=== PATIENT | male | born 1960 | race Caucasian/White ===

== ENCOUNTER 2022-09-18 06:15 | Inpatient (IN) ==
--- NOTE | 2022-09-03 09:22 | PAT Medication Instructions ---
Medication Instructions Date of Service September 03, 2022 Home Medications buspirone 10 mg tablet 10 mg PO BID celecoxib 200 mg capsule 200 mg PO QAM cyclobenzaprine 5 mg tablet 5 mg PO TID ezetimibe 10 mg tablet 10 mg PO QAM gabapentin 100 mg tablet 300 mg PO HS naproxen 500 mg tablet 500 mg PO QPM pravastatin 40 mg tablet 40 mg PO HS ASK your surgeon for instructions celecoxib 200 mg capsule 200 mg PO QAM naproxen 500 mg tablet 500 mg PO QPM DO NOT take the morning of surgery cyclobenzaprine 5 mg tablet 5 mg PO TID Take morning of surgery With a small sip of water, OTHERWISE NOTHING TO EAT OR DRINK AFTER MIDNIGHT: buspirone 10 mg tablet 10 mg PO BID ezetimibe 10 mg tablet 10 mg PO QAM Take evening before surgery buspirone 10 mg tablet 10 mg PO BID cyclobenzaprine 5 mg tablet 5 mg PO TID gabapentin 100 mg tablet 300 mg PO HS pravastatin 40 mg tablet 40 mg PO HS Other Notes If you have any questions please call us at [phone] or [phone] or [phone] or [phone]
--- NOTE | 2022-09-09 10:59 | Anesthesiology Consultation ---
Date of Service September 09, 2022 Assessment & Plan (1) Encounter for pre-operative examination: Chart Review Chart Review: Acceptable Risk for Surgery and Patient seen in Pre Admission Testing addendum TO 09/11/22, medical clearance 09/10/22: "...preop for back surgery...pre- op testing done at [facility]...low to moderate risk for his surgery..." Per PAT appt on 09/09/22, patient denies any recent travel. No recent Covid exposures, Covid related symptoms, or recent Covid positive tests. Will leave to surgeon's discretion if preop Covid testing needed. Educated on importance of using Covid precautions one week prior to surgery Teaching & Discussion Pre-Anesthesia Teaching/Discussion Notes: Instructed NPO after midnight before surgery,except medications with 15 cc of water. Medication instructions provided according to the [facility] guidelines. History Surgery Operation Date: 09/18/22 07:45 Proposed Procedures p L4-L5 Decompression and Fusion, Spinal Cord Monitoring - Yonny Montiel, Height/Weight Height: 5 ft 10 in Weight: 88.4 kg Allergies Allergy/AdvReac Type Severity Reaction Status Date / Time No Known Allergies Allergy Verified 08/29/22 09:45 Medications Home Medications Medication Instructions Recorded Confirmed Last Taken buspirone 10 mg tablet 10 mg PO BID 08/29/22 08/29/22 Unknown celecoxib 200 mg capsule 200 mg PO QAM 08/29/22 08/29/22 Unknown cyclobenzaprine 5 mg tablet 5 mg PO TID 08/29/22 08/29/22 Unknown ezetimibe 10 mg tablet 10 mg PO QAM 08/29/22 08/29/22 Unknown gabapentin 100 mg tablet 300 mg PO HS 08/29/22 08/29/22 Unknown pravastatin 40 mg tablet 40 mg PO HS 08/29/22 08/29/22 Unknown Past Medical History Medical History Chronic back pain Degenerative disc disease Hyperlipidemia Osteoarthritis Peripheral neuropathy bilateral legs (left>right) Spinal stenosis Exercise / Class Metabolic Activity II 4-5 Yardwork/Stairs/Walk up hill (one flight of stairs- no chest pain or SOB ) Past Family History Family History Father FHx: prostate cancer, Onset Age: 65 Other No family history of adverse response to anesthesia Past Surgical History Surgical History S/P arthroscopy of left shoulder with RCR Past Anesthesia History No Hx of Anesthesia Complications and No Family Hx of Anesthesia Complications History of PONV No Hx of PONV and No Hx of Motion Sickness Social History Smoking Status: Never smoker Do You Dip or Chew Tobacco: No Hx Alcohol Use: No Hx Substance Use: No Review of Systems Hx of snoring - no witnessed apnea- no hx of sleep study Patient denies chest pain, shortness of breath, dyspnea on exertion, reflux, cough, wheezing, palpitations. No hx of seizures, stroke, CA. No hx of blood clots or blood transfusions Physical Exam Vital Signs VITALS BP 136/83 P 64 TEMP 97.6 SP02 97% RESP 16 Constitutional no acute distress ENMT Mouth: no TMJ clicking Thyromental Distance: > or= 3.5 Finger Breadths (4.0) Mallampati Class: I Neck + limited neck extension (minimal) Respiratory normal respiratory effort; no respiratory distress Auscultation: lungs clear to auscultation bilaterally; no wheezes Cardiovascular Rate/Rhythm: regular rate and regular rhythm Heart Sounds: no murmur Vessels: no carotid bruit Musculoskeletal Spine: no pain with cervical ROM Extremities: extremities normal to inspection Psychiatric Orientation: alert Lab Results Anesthesia Preop Results Results Anesthesia Widget: WBC 6.44 K/ul (4.8-10.8) 09/09/22 Hgb 15.8 g/dl (14.0-18.0) 09/09/22 Hct 47.4 % (42.0-52.0) 09/09/22 Plt 239 K/uL (130-400) 09/09/22 Na 141 mmol/L (136-145) 09/09/22 K 4.4 mmol/L (3.5-5.1) 09/09/22 Cl 106 mmol/L (98-107) 09/09/22 CO2 30 mmol/L (21-32) 09/09/22 BUN 21 mg/dl (6-23) 09/09/22 Creat 0.88 mg/dl (0.6-1.4) 09/09/22 Glucose Level 86 mg/dl (70-99(Fasting)) 09/09/22 PT 11.2 Seconds (9.0-12.0) 09/09/22 PTT 26.9 Seconds (21.0-31.0) 09/09/22 INR 1.0 (0.9-1.1) 09/09/22 Urine Color Dark Yellow 09/09/22 Urine Appearance Clear (Clear) 09/09/22 Urine pH 5.0 (4.5-7.5) 09/09/22 Urine Specific Continental 1.039 (1.000-1.030) H 09/09/22 Urine Protein Negative (Negative) 09/09/22 Urine Glucose (UA) Negative (Negative) 09/09/22 Urine Ketones Trace (Negative) H 09/09/22 Urine Blood Negative (Negative) 09/09/22 Urine Nitrite Negative (Negative) 09/09/22 Urine Bilirubin Negative (Negative) 09/09/22 Urine Urobilinogen Negative (Negative) 09/09/22 Urine Leukocyte Esterase Negative (Negative) 09/09/22 Blood Type B Negative 09/09/22 Antibody Screen NEGATIVE 09/09/22 Testing Electrocardiogram Date: 09/09/22 Findings: + NSR @ (62bpm ) Normal EKG per cardio Chest X-Ray Date: 09/09/22 Findings: + NAD FINDINGS: PA and lateral chest radiographs are obtained. No prior studies are available for comparison at the time of dictation. The cardiomediastinal silhouette is unremarkable. The lungs and pleural spaces are clear. There is no pneumothorax. The bony thorax appears intact. Mild degenerative change is noted in the spine.
[~2022-09-18 06:15] MED LIST: ACETAMINOPHEN 500 MG TAB PO SCH; CeleBREX 200 MG CAP PO SCH; GABAPENTIN 600 MG DOSE PO SCH; LR 500ML BOLUS IV SCH; LR 60ML/HR IV SCH; ceFAZolin 2000MG 2,000 MG/15 ML SYR IV SCH
[2022-09-18] MEDS ORDERED: ePHEDrine sulfate 50 MG/ML AMP IV PRN (07:07)
[2022-09-18] MEDS ORDERED: ONDANSETRON INJ 2 MG/ML 2 ML VIAL IV PRN ×2 (07:07→11:33)
[2022-09-18] MEDS ORDERED: ATROPINE SULFATE 0.1 MG/ML 10ML SYR IV PRN (07:07)
[2022-09-18] MEDS ORDERED: HYDROmorphone INJ 2 MG/ML SYR/VIAL IV PRN (07:07)
[2022-09-18] MEDS ORDERED: PROMETHAZINE HCL 6.25 MG in SODIUM CHLORIDE 0.9% 50 ML IV PRN (07:07)
[2022-09-18] MEDS ORDERED: ROCURONIUM BROMIDE 10 MG/ML 5 ML VIAL IV ONE ×2 (07:15→08:26)
[2022-09-18] MEDS ORDERED: KETAMINE 50 MG/5 ML SYRINGE ONE (07:15)
[2022-09-18] MEDS ORDERED: fentaNYL citrate PF 100 MCG/2 ML VIAL ONE (07:15)
[2022-09-18] MEDS ORDERED: MIDAZOLAM HCL 1 MG/ML 2ML VIAL ONE (07:15)
[2022-09-18] MEDS ORDERED: PROPOFOL IV EMULSION 10 MG/ML 20 ML VIAL IV ONE (07:15)
[2022-09-18] MEDS ORDERED: DEXAMETHASONE SOD INJ 4 MG/ML VIAL ONE (07:15)
[2022-09-18] MEDS ORDERED: ONDANSETRON INJ 2 MG/ML 2 ML VIAL ONE (07:15)
[2022-09-18] MEDS ORDERED: LIDOCAINE 2% 2 ML VIAL/AMP(20MG/ML) INFIL ONE (07:15)
[2022-09-18] MEDS ORDERED: ceFAZolin 330 MG/ML 1 GM VIAL ONE (07:41)
[2022-09-18] MEDS ORDERED: BUPIVACAINE/EPINEPHRINE 0.25% 1:200,000 30 ML VIAL ONE (07:41)
--- NOTE | 2022-09-18 07:42 | History & Physical Bridge Note ---
Date of Service September 18, 2022 History & Physical Bridge Note I have examined the patient, reviewed the History & Physical and in the interval since the performance of the History & Physical I have noted the following changes of clinical significance: no changes noted
--- NOTE | 2022-09-18 07:43 | History & Physical Report ---
Date of Service September 18, 2022 Assessment & Plan (1) Neurogenic claudication due to lumbar spinal stenosis: Plan: L4-5 decompression and fusion History of Present Illness Chief Complaint: Back and leg pain Primary Care Provider: MARC Carrizales This is a 62-year-old male who presents with chronic persistent back and leg pain and failing since course of nonoperative care is here for surgical invention. Allergies Allergy/AdvReac Type Severity Reaction Status Date / Time No Known Allergies Allergy Verified 09/18/22 06:41 Home Medications Medication Instructions Recorded Confirmed Type buspirone 10 mg tablet 10 mg PO BID 08/29/22 09/18/22 History celecoxib 200 mg capsule 200 mg PO QAM 08/29/22 09/18/22 History cyclobenzaprine 5 mg tablet 5 mg PO TID 08/29/22 09/18/22 History ezetimibe 10 mg tablet (Zetia) 10 mg PO QAM 08/29/22 09/18/22 History gabapentin 100 mg tablet 300 mg PO HS 08/29/22 09/18/22 History pravastatin 40 mg tablet 40 mg PO HS 08/29/22 09/18/22 History Past Med/Surg History Medical History Chronic back pain Degenerative disc disease Hyperlipidemia Osteoarthritis Peripheral neuropathy bilateral legs (left>right) Spinal stenosis Surgical History S/P arthroscopy of left shoulder with RCR Family History Father FHx: prostate cancer, Onset Age: 65 Other No family history of adverse response to anesthesia Social History Smoking Status: Never smoker Second Hand Exposure: No; Do You Dip or Chew Tobacco: No; Tobacco Cessation Education Requested by Patient: No Hx Alcohol Use: No Hx Substance Use: No Preferred Language: Divehi Communication Ability: Effective Machine Welt Butter Required: No Beliefs That Will Affect Care: None Current Living Situation: Spouse Other Information That Helps Us Care for You: No Feels Safe at Home: Yes Safety Concerns: Feels Safe At This Time Assistive Devices: None Physical Exam Physical Exam: Patient is alert and oriented Heart regular rhythm Lungs clear Results & Data Results & Data Vital Signs (Past 12 Hours) Vital Signs Temp Pulse Resp BP Pulse Ox O2 Del Method 09/18/22 06:44 37.0 C 72 18 162/91 H 97 Room Air
[2022-09-18] MEDS ORDERED: SUGAMMADEX SODIUM 200 MG/2 ML VIAL IV ONE (08:26)
[2022-09-18] MEDS ORDERED: ePHEDrine sulfate 50 MG/ML AMP ONE (08:46)
[2022-09-18] MEDS ORDERED: FLOSEAL HEMOSTATIC MATRIX 10ML TOP ONE (08:52)
--- NOTE | 2022-09-18 09:33 | Operative Report ---
Post Operative Report Pre & Post Diagnosis Operation Date: 09/18/22 07:45 Pre-Op Diagnosis: Neurogenic claudication due to lumbar spinal stenosis Post-Op Diagnosis: Neurogenic claudication due to lumbar spinal stenosis I identified the patient and participated in the time-out.: Yes Procedure Operation Date: 09/18/22 07:45 Actual Procedures 1. Lumbar decompression bilaterally facetectomies and foraminotomies L3-L4 and L4-5. #2 posterior spinal fusion L4-L5 #3 placed posterior instrumentation L4-5 per #4 interbody fusion L4-5 and L5 placement Spira 15 x 26 mm x 2 at L4-5. #6 placement locally harvested morselized autograft in the posterior gutters. #7 placement of I factor amount of the test interbody space and posterior gutters. Surgeon Yonny Montiel, Mold Laminator Mariel Robles Estimated Blood Loss 50 Findings Consistent with Post-Op Diagnosis Specimens none Indications This is a 62-year-old male who presents above-mentioned diagnosis after failing course of nonoperative care is here for surgical invention. Description of Procedure Patient was met with identified informed consent obtained. Patient was then taken to the operative suite underwent a patient placed in a prone position on the David table atop the Terry frame. All bony prominences well-padded eyes inspected to ensure no external pressure placed upon the. This point lumbar spine was prepped and draped in a sterile fashion. Sharp dissection with the assistance of Bovie cautery performed down to and exposing the lamina transverse processes of L4-L5. From caudal cephalad fashion complete laminectomy of L4 partial laminectomy L3 was performed including bilaterally facetectomies and foraminotomies addressing severe spinal stenosis as well as a massive facet cyst at L4-5 on the left that was directly adhered to the dura. After complete decompression pedicle screws were placed at L4-5 bilaterally with assistance of fluoroscopy and appropriate sized jayy placed. By way of transforaminal approach on the left discectomy was performed endplates guided to subcortically bone and a 15 x 26 mm Spira cage with I factor tapped in position. Then proceeded to the right transforaminal region got again discectomy performed endplates curetted to subcortically bone and a second 15 x 26 mm Spira cage tapped into position. The rods were then compressed locked in final position bilaterally but the transverse processes of L4-5 burred to subcortically bone. I factor bone of the test and locally harvested morselized allograft was placed in the posterior gutters. 15 round NAKUL drain inserted. The incision was then closed with 1 Vicryl the fascia 2-0 Vicryl subcutaneously and 4 Monocryl for final skin closure. Steri-Strips sterile dressing placed. Patient waken taken to PACU stable condition. Please note spinal cord monitoring was utilized at the procedure no changes noted. Lastly Mariel Robles was present at the entire surgery and while the patient positioning complex portions of the surgery and final skin closure. I attest to the content of the Intraoperative Record and any orders documented therein. Any exceptions are noted below.
--- NOTE | 2022-09-18 09:50 | Fluoroscopy Report ---
FL lumbar spine 2-3V CLINICAL HISTORY: L4-5 DFI TECHNIQUE: 2 views were obtained with the C-arm in the OR with the above procedure. Total fluoroscopy time was 12.8 seconds. Radiation dose was 10.3 mGy. Comparison: None available at the time of this dictation. FINDINGS/IMPRESSION: Intraoperative images were obtained of L4-L5 decompression and fusion. Please correlate with intraoperative fluoroscopy and operative report. ACT 112: Negative or not required by law. Electronically signed by: Harjeet Girard M.D. 09/18/2022 9:49 AM
[2022-09-18] MEDS: fentaNYL citrate PF 100 MCG/2 ML VIAL IV PRN ×4 (10:29→10:44)
--- NOTE | 2022-09-18 11:08 | Anesthesiology Progress Note ---
Date of Service September 18, 2022 Anesthesia Post Procedure Vital Signs Vital Signs: Temp Pulse Resp BP Pulse Ox O2 Del Method O2 Flow Rate 09/18/22 11:05 87 12 142/87 H 95 Nasal Cannula 2 09/18/22 10:55 36.7 C 82 14 138/83 97 Nasal Cannula 4 09/18/22 10:45 83 14 143/87 H 97 Nasal Cannula 4 09/18/22 10:35 81 14 142/89 H 97 Nasal Cannula 4 09/18/22 10:25 84 14 143/91 H 98 Oxymask 5 09/18/22 10:15 83 12 139/88 98 Oxymask 5 09/18/22 10:05 79 14 148/86 H 97 Oxymask 5 09/18/22 09:56 36.2 C L 78 12 135/80 98 Oxymask 5 09/18/22 06:44 37.0 C 72 18 162/91 H 97 Room Air Pain Intensity Back: Pain Intensity: 2 Transfer of Care Handoff Completed per policy Notes Mental Status: alert / awake / arousable and participated in evaluation Patient Amnestic to Procedure: Yes Nausea / Vomiting: adequately controlled Pain: adequately controlled Airway Patency, RR, SpO2: stable & adequate BP & HR: stable & adequate Hydration State: stable & adequate Anesthetic Complications: no major complications apparent and Pt Satisfied with anesthetic care
[2022-09-18] MEDS ORDERED: METOCLOPRAMIDE HCL INJ 5 MG/ML 2 ML VIAL IV PRN (11:33)
[2022-09-18] MEDS ORDERED: HYDROmorphone INJ 1 MG/ML SYRINGE IV PRN (11:33)
[2022-09-18] MEDS ORDERED: PROMETHAZINE HCL 12.5 MG in SODIUM CHLORIDE 0.9% 50 ML IV PRN (11:33)
[2022-09-18] MEDS ORDERED: ALUMINUM/MAGNESIUM SUSP 30 ML UDC PO PRN (11:33)
[2022-09-18] MEDS ORDERED: DO NOT ADMINISTER PNEUMOCOCCAL VACCINE PRN (11:33)
[2022-09-18] MEDS ORDERED: HYDROmorphone INJ 0.5 MG/0.5 ML SYR IV PRN (11:33)
[2022-09-18] MEDS ORDERED: hydrOXYzine HCl 25 MG TAB PO PRN (11:33)
[2022-09-18] MEDS ORDERED: MAGNESIUM HYDROXIDE SUSP 30 ML UDC PO PRN (11:33)
[2022-09-18] MEDS ORDERED: LACTATED RINGER'S 1,000 ML IV SCH (11:33)
[2022-09-18] MEDS ORDERED: oxyCODONE HCL IR 5 MG TAB (IMMEDIATE RELEASE) PO PRN (11:33)
[2022-09-18] MEDS ORDERED: ACETAMINOPHEN 500 MG TAB PO PRN (11:33)
[2022-09-18] MEDS ORDERED: NALOXONE HCL 0.4 MG/1 ML VIAL/CARP IV PRN (11:33)
[2022-09-18] MEDS ORDERED: LORazepam 0.5 MG TAB PO PRN (11:33)
[2022-09-18] MEDS ORDERED: SOD PHOSPHATE/SOD BIPHOSPHATE ENEMA 132 ML BTL PR PRN (11:33)
[2022-09-18] MEDS ORDERED: FAMOTIDINE 20 MG TAB PO PRN (11:33)
[2022-09-18] MEDS ORDERED: ACETAMINOPHEN 1,000 MG/100 ML VIAL IV PRN (11:33)
[2022-09-18] MEDS ORDERED: diphenhydrAMINE Capsule 25 MG CAP PO PRN (11:33)
[2022-09-18] MEDS ORDERED: LORazepam 2 MG/1 ML VIAL IV PRN (11:33)
[2022-09-18] MEDS ORDERED: ONDANSETRON 4 MG OD TAB PO PRN (11:33)
[2022-09-18] MEDS ORDERED: DO NOT ADMINISTER FLU VACCINE PRN (11:33)
[2022-09-18] MEDS ORDERED: bisacodyL 10 MG SUPP PR PRN (11:33)
--- NOTE | 2022-09-18 11:58 | Consultation ---
Date of Consultation September 18, 2022 Assessment & Plan (1) Neurogenic claudication due to lumbar spinal stenosis: s/p 1. Lumbar decompression bilaterally facetectomies and foraminotomies L3-L4 and L4-5. #2 posterior spinal fusion L4-L5 #3 placed posterior instrumentation L4-5 per #4 interbody fusion L4-5 and L5 placement Spira 15 x 26 mm x 2 at L4- 5. #6 placement locally harvested morselized autograft in the posterior gutters. #7 placement of I factor amount of the test interbody space and posterior gutters by EBL 50cc POD #0 -pain/wound management per Ortho -VTE prophylaxis per Ortho, encourage early ambulation -incentive spirometry encouraged -CBC, BMP in am -PT/OT and activity restrictions per Ortho (2) Hyperlipidemia: chronic, stable. cont Pravastatin and ezetimibe per home regimen. (3) Osteoarthritis: chronic, stable. No active pain at this time. Celebrex has been held for the past week. Defer to ortho spine to restart once bleeding risk is minimal. (4) Depression: chronic, stable. Cont Buspar per home regimen. DVT prophylaxis-SCDs Full COde Dispo-med/surg I spent a total [id number] coordinating, documenting, and providing care for this patient excluding time spent in the performance of separately billed services. Thank you for this consultation. We will continue to follow this patient during their hospital stay. Calista Wheeler DO [facility] Hospitalist History of Present Illness Requesting Physician: Brendon Montiel DO Reason for Consultation: medical management Attending Physician: Yonny Montiel DO History of Present Illness 62 yo M with hyperlipidemia, depression and neck pain presented today for elective lumbar decompression surgery to treat ongoing neurogenic claudication due to lumbar spinal stenosis. No pain post operative. No nausea. No SOB or chest pain. No tingling in his feet. H&P performed and medications were reconciled. was at bedside and contributed to history. Allergies Allergy/AdvReac Type Severity Reaction Status Date / Time atorvastatin AdvReac Unknown joint pains Uncoded 09/18/22 12:02 prednisone AdvReac Unknown Uncoded 09/18/22 12:02 Home Medications Medication Instructions Recorded Confirmed Type buspirone 10 mg tablet 10 mg PO BID 08/29/22 09/18/22 History celecoxib 200 mg capsule 200 mg PO QAM 08/29/22 09/18/22 History cyclobenzaprine 5 mg tablet 5 mg PO TID 08/29/22 09/18/22 History ezetimibe 10 mg tablet (Zetia) 10 mg PO QAM 08/29/22 09/18/22 History pravastatin 40 mg tablet 40 mg PO HS 08/29/22 09/18/22 History gabapentin 100 mg capsule 100 mg PO BID@1300 09/18/22 09/18/22 History gabapentin 300 mg capsule 300 mg PO HS 09/18/22 09/18/22 History Patient History Medical History (Updated 09/18/22 @ 11:58 by Calista Wheeler DO) Chronic back pain Degenerative disc disease Depression Hyperlipidemia Osteoarthritis Peripheral neuropathy bilateral legs (left>right) Spinal stenosis Surgical History (Updated 09/18/22 @ 12:13 by Calista Wheeler DO) Hx of decompressive lumbar laminectomy 09/18/22 S/P arthroscopy of left shoulder with RCR Family History Father FHx: prostate cancer, Onset Age: 65 Other No family history of adverse response to anesthesia Social History (Updated 09/18/22 @ 11:56 by Calista Wheeler DO) Smoking Status: Never smoker Second Hand Exposure: No; Do You Dip or Chew Tobacco: No; Hx Alcohol Use: No Hx Substance Use: No Preferred Language: Lithuanian Communication Ability: Effective Assistant Signal Maintainer Required: No Beliefs That Will Affect Care: None marital status: Current Living Situation: Spouse Feels Safe at Home: Yes Assistive Devices: None Review of Systems Review of Systems: All systems were reviewed and negative except as indicated on HPI above. Physical Exam Physical Exam: CONSTITUTIONAL: WNWD, vitals as above, generally well-appearing, NAD EYES: pupils are round and equal bilaterally, normal conjunctivae, no scleral icterus ENT: external ear and nose normal, oropharynx clear NECK: trachea midline RESPIRATORY: clear to auscultation bilaterally, no crackles, rales or wheezes, normal respiratory effort CARDIOVASCULAR: regular rate and rhythm, S1 and 2 heard without murmurs, gallops or rubs, no JVD, no peripheral edema CHEST: inspection of chest was normal GASTROINTESTINAL: soft, nontender, ND, no guarding MUSCULOSKELETAL: strength 5/5 throughout, head is normocephalic and atraumatic, neck supple, normal palpation of chest wall without tenderness SKIN: warm and dry, no rashes NEUROLOGIC: CN 2-12 grossly intact, no sensory deficit, normal cognition, normal speech, no tremor PSYCHIATRIC: alert cooperative and oriented to person, place and time. Euthymic mood, makes good eye contact, language grossly intact, recent and remote memory grossly intact. Results & Data Vital Signs (Past 12 Hours) Vital Signs Temp Pulse Resp BP Pulse Ox O2 Del Method O2 Flow Rate 09/18/22 11:35 36.5 C 84 18 143/81 H 98 Nasal Cannula 2 09/18/22 11:15 88 13 135/80 96 Nasal Cannula 2 09/18/22 11:05 87 12 142/87 H 95 Nasal Cannula 2 09/18/22 10:55 36.7 C 82 14 138/83 97 Nasal Cannula 4 09/18/22 10:45 83 14 143/87 H 97 Nasal Cannula 4 09/18/22 10:35 81 14 142/89 H 97 Nasal Cannula 4 09/18/22 10:25 84 14 143/91 H 98 Oxymask 5 09/18/22 10:15 83 12 139/88 98 Oxymask 5 09/18/22 10:05 79 14 148/86 H 97 Oxymask 5 09/18/22 09:56 36.2 C L 78 12 135/80 98 Oxymask 5 09/18/22 06:44 37.0 C 72 18 162/91 H 97 Room Air Diagnostic Findings Lumbar Spine X-Ray 09/18/22 07:45 FL lumbar spine 2-3V CLINICAL HISTORY: L4-5 DFI TECHNIQUE: 2 views were obtained with the C-arm in the OR with the above procedure. Total fluoroscopy time was 12.8 seconds. Radiation dose was 10.3 mGy. Comparison: None available at the time of this dictation. FINDINGS/IMPRESSION: Intraoperative images were obtained of L4-L5 decompression and fusion. Please correlate with intraoperative fluoroscopy and operative report. ACT 112: Negative or not required by law. Electronically signed by: Harjeet Girard M.D. 09/18/2022 9:49 AM Medications Administered Current Inpatient Medications Acetaminophen (Acetaminophen 500 Mg Tab) 1,000 mg PO PREOP STEVEN Stop: 09/18/22 18:00 Last Admin: 09/18/22 06:54 Dose: 1,000 mg Acetaminophen (Acetaminophen 500 Mg Tab) 1,000 mg PO Q8H PRN PRN Reason: MILD Pain Scale 1,2,3 & Pre PT Stop: 10/18/22 11:32 Al Hydrox/Mg Hydrox/Simethicone (Aluminum/Magnesium Susp 30 Ml Udc) 30 ml PO Q6H PRN PRN Reason: Dyspepsia Stop: 10/18/22 11:32 Bisacodyl (Bisacodyl 10 Mg Supp) 10 mg CA DAILY PRN PRN Reason: Constipation Stop: 10/18/22 11:32 Buspirone HCl (Buspirone 5 Mg Tab) 10 mg PO BID STEVEN Stop: 10/18/22 20:59 Celecoxib (Celebrex 200 Mg Cap) 200 mg PO PREOP STEVEN Stop: 09/18/22 18:00 Last Admin: 09/18/22 06:54 Dose: 200 mg Diphenhydramine HCl (Diphenhydramine Capsule 25 Mg Cap) 25 mg PO Q6H PRN PRN Reason: Allergic Rhinitis/Insomnia Stop: 10/18/22 11:32 Ezetimibe (Ezetimibe 10 Mg Tablet) 10 mg PO QAM STEVEN Stop: 10/19/22 08:59 Famotidine (Famotidine 20 Mg Tab) 20 mg PO Q12H PRN PRN Reason: Dyspepsia Stop: 10/18/22 11:32 Gabapentin (Gabapentin 600 Mg Dose) 600 mg PO PREOP STEVEN Stop: 09/18/22 18:00 Last Admin: 09/18/22 06:54 Dose: 600 mg Gabapentin (Gabapentin 300 Mg Cap) 300 mg PO HS [facility] Stop: 10/18/22 20:59 Hydromorphone HCl (Hydromorphone Inj 0.5 Mg/0.5 Ml Syr) 0.5 mg IV Q3H PRN PRN Reason: MODERATE Pain (Scale 4,5,6) & Pre PT Stop: 10/02/22 11:32 Hydromorphone HCl (Hydromorphone Inj 1 Mg/Ml Syringe) 1 mg IV Q3H PRN PRN Reason: SEVERE Pain (Scale 7,8,9,10) Stop: 10/02/22 11:32 Hydroxyzine HCl (Hydroxyzine Hcl 25 Mg Tab) 25 mg PO Q8H PRN PRN Reason: Anxiety Stop: 10/18/22 11:32 Lactated Ringer's (Lr) 1,000 mls @ 60 mls/hr IV .[id number] STEVEN Stop: 09/18/22 22:39 Last Infusion: 09/18/22 07:50 Dose: Infused Cefazolin Sodium (Ancef 2000mg) 2,000 mg in 15 mls @ 3.75 mls/min IV PREOP STEVEN; Protocol Stop: 09/18/22 18:00 Last Admin: 09/18/22 07:50 Dose: 3.75 mls/min Lactated Ringer's (Lr) 1,000 mls @ 100 mls/hr IV .Q10H STEVEN Stop: 10/18/22 11:32 Promethazine HCl 12.5 mg/ (Sodium Chloride) 50.5 mls @ 202 mls/hr IV Q6H PRN PRN Reason: Nausea &/or Vomiting Stop: 10/18/22 11:32 Acetaminophen (Ofirmev) 1,000 mg in 100 mls @ 400 mls/hr IV Q8H PRN PRN Reason: Pain Rating 1-3 & Pre PT Stop: 09/19/22 11:33 Cefazolin Sodium (Ancef 2000mg) 2,000 mg in 15 mls @ 3.75 mls/min IV Q8H STEVEN; Protocol Stop: 09/18/22 23:48 Dexamethasone 6 mg/ Syringe 1.5 mls @ 1 mls/min IV DAILY STEVEN Stop: 09/21/22 09:02 Influenza Virus Vaccine Quadrival (Do Not Administer Flu Vaccine) 1 each N/A PRN PRN PRN Reason: Notification Stop: 10/18/22 11:32 Lorazepam (Lorazepam 0.5 Mg Tab) 0.5 mg PO Q8H PRN PRN Reason: Sedation/Anxiety Stop: 10/18/22 11:32 Lorazepam (Lorazepam 2 Mg/1 Ml Vial) 0.5 mg IV Q8H PRN PRN Reason: Sedation/Anxiety Stop: 10/18/22 11:32 Magnesium Hydroxide (Magnesium Hydroxide Susp 30 Ml Udc) 30 ml PO Q24H PRN PRN Reason: Constipation Stop: 10/18/22 11:32 Metoclopramide HCl (Metoclopramide Hcl Inj 5 Mg/Ml 2 Ml Vial) 10 mg IV Q6H PRN PRN Reason: Nausea &/or Vomiting Stop: 10/18/22 11:32 Naloxone HCl (Naloxone Hcl 0.4 Mg/1 Ml Vial/Carp) 0.1 mg IV Q5M PRN PRN Reason: Oversedation/Resp depression Stop: 10/18/22 11:32 Ondansetron HCl (Ondansetron Inj 2 Mg/Ml 2 Ml Vial) 4 mg IV Q6H PRN PRN Reason: Nausea &/or Vomiting Stop: 10/18/22 11:32 Ondansetron HCl (Ondansetron 4 Mg Od Tab) 4 mg PO Q6H PRN PRN Reason: Nausea Stop: 10/18/22 11:32 Oxycodone HCl (Oxycodone Hcl Ir 5 Mg Tab (Immediate Release)) 5 - 10 mg PO Q4H PRN PRN Reason: Pain & Pre PT Stop: 10/02/22 11:32 Pneumococcal Polyvalent Vaccine (Do Not Administer Pneumococcal Vaccine) 1 each N/A PRN PRN PRN Reason: Notification Stop: 10/18/22 11:32 Polyethylene Glycol (Polyethylene (Miralax) 17 Gm Pack) 17 gm PO Q6 STEVEN Stop: 10/19/22 05:59 Pravastatin Sodium (Pravastatin Sod 40 Mg Tab) 40 mg PO HS STEVEN Stop: 10/18/22 20:59 Senna/Docusate Sodium (Docusate Sodium/Senna 50/8.6mg Tab) 2 tab PO HS STEVEN Stop: 10/18/22 20:59 Sodium Biphosphate/Sodium Phosphate (Sod Phosphate/Sod Biphosphate Enema 132 Ml Btl) 132 ml CA ONE PRN PRN Reason: Constipation Stop: 10/18/22 11:32 Tramadol HCl (Tramadol Hcl 50 Mg Tablet) 50 - 100 mg PO Q4H PRN PRN Reason: Moderate-Severe pain & Pre PT Stop: 10/18/22 11:32
[2022-09-18] MEDS: traMADol HCL 50 MG TABLET PO PRN ×3 (13:01→22:11)
[2022-09-18] MEDS: ceFAZolin 2000MG 2,000 MG/15 ML SYR IV SCH ×2 (15:48→22:11)
[2022-09-18] MEDS: DOCUSATE SODIUM/SENNA 50/8.6MG TAB PO SCH (21:07)
[2022-09-18] MEDS: PRAVASTATIN SOD 40 MG TAB PO SCH (21:07)
[2022-09-18] MEDS: busPIRone 5 MG TAB PO SCH (21:07)
[2022-09-18] MEDS: GABAPENTIN 300 MG CAP PO SCH (21:07)
[2022-09-19] MEDS: traMADol HCL 50 MG TABLET PO PRN ×4 (05:43→20:24)
[2022-09-19] MEDS: POLYETHYLENE (MIRALAX) 17 GM PACK PO SCH ×4 (05:43→23:10)
[2022-09-19 08:05] LABS: Basophils # (auto) 0.03 K/uL (0-0.2); Basophils % (auto) 0.2 %; Hemoglobin 14.4 g/dl (14.0-18.0); Immature Granulocytes # (auto) 0.15 K/uL (0.01-0.20); Immature Granulocytes % (auto) 0.8 %; Lymphocytes # (auto) 1.39 K/uL (1.2-3.4); Lymphocytes % (auto) 7.3 %; Mean Corpuscular Hemoglobin 33.1 pg (25.0-34.0); Mean Corpuscular Hgb Conc 35.1 g/dL (32.0-36.0); Mean Corpuscular Volume 94.3 fL (80.0-100.0); Monocytes # (auto) 1.02 K/uL (0.11-0.59); Monocytes % (auto) 5.4 %; Neutrophils # (auto) 16.42 K/uL (1.40-6.50); Neutrophils % (auto) 86.3 %; Platelet Count 251 K/uL (130-400); RDW Coefficient of Variation 12.5 % (11.5-14.5); RDW Standard Deviation 43.6 fL (36.4-46.3); Red Blood Count 4.35 M/uL (4.70-6.10); White Blood Count 19.01 K/ul (4.8-10.8)
[2022-09-19 08:25] LABS: BUN Creatinine Ratio 22.4 (10-20); Creatinine Clr Calc Pharmacy 102.7 ml/min; Est GFR (African American) 112.5 ml/min; Est GFR (Non-African American) 97.1 ml/min; Potassium 4.1 mmol/L (3.5-5.1)
--- NOTE | 2022-09-19 08:38 | Orthopedic Progress Note ---
Date of Service September 19, 2022 Assessment & Plan (1) Neurogenic claudication due to lumbar spinal stenosis: Plan: At this time initiate physical therapy monitor his NAKUL output anticipate discharge home in the next few days. Admission and Anticipated Discharge Date Admission Date: September 18, 2022 Subjective Back pain controlled leg pain markedly improved Physical Exam Physical Exam: Patient is present for testing. Appears comfortable. Results & Data Vital Signs (Past 12 Hours) Vital Signs Temp Pulse Resp BP Pulse Ox O2 Del Method 09/19/22 07:22 37.1 C 81 16 114/72 96 Room Air 09/19/22 02:55 36.5 C 77 18 108/62 98 Room Air 09/19/22 00:08 36.6 C 92 H 18 108/62 95 Room Air
[2022-09-19] MEDS: EZETIMIBE 10 MG TAB PO SCH (08:58)
[2022-09-19] MEDS: busPIRone 5 MG TAB PO SCH ×2 (08:59→20:24)
[2022-09-19] MEDS: dexAMETHasone 6 MG in SYRINGE 0 ML IV SCH (08:59)
--- NOTE | 2022-09-19 16:54 | Hospitalist Progress Note ---
Date of Service September 19, 2022 Assessment & Plan (1) Neurogenic claudication due to lumbar spinal stenosis: Plan: s/p 1. Lumbar decompression bilaterally facetectomies and foraminotomies L3-L4 and L4-5. #2 posterior spinal fusion L4-L5 #3 placed posterior instrumentation L4-5 per #4 interbody fusion L4-5 and L5 placement Spira 15 x 26 mm x 2 at L4- 5. #6 placement locally harvested morselized autograft in the posterior gutters. #7 placement of I factor amount of the test interbody space and posterior gutters by EBShin 50cc POD #1 -pain/wound management per Ortho -VTE prophylaxis per Ortho, encourage early ambulation -incentive spirometry encouraged -CBC, BMP in am -PT/OT and activity restrictions per Ortho (2) Hyperlipidemia: Plan: chronic, stable. cont Pravastatin and ezetimibe per home regimen. (3) Osteoarthritis: Plan: chronic, stable. No active pain at this time. Celebrex has been held for the past week. Defer to ortho spine to restart once bleeding risk is minimal. (4) Depression: Plan: chronic, stable. Cont Buspar per home regimen. DVT prophylaxis-SCDs Full Code Dispo-med/surg Admission and Anticipated Discharge Date Admission Date: September 18, 2022 Subjective Back pain controlled BLE radicular pain markedly improved. Reports tolerating diet, has not moved bowel, is moving gas. Reports feeling better. Physical Exam Physical Exam: GENERAL: Alert and oriented x3. NAD, on RA. HEENT: No pallor, no icterus. Pupils equal, round and reactive to light. Oral mucosa moist. NECK: No JVD, no neck masses. HEART: S1 and S2 heard. Regular rate and rhythm. No murmur, no gallop. RESPIRATORY SYSTEM: Normal AP diameter. No accessory muscle use. No wheezing, no crackles. ABDOMEN: Soft, bowel sounds present, nontender, no distention. CENTRAL NERVOUS SYSTEM: No facial droop. Speech is clear. Obeys simple commands. Moves extremities. EXTREMITIES: No edema, no erythema seen. Lower back with clean dressing without soakage. NAKUL drain noted with minimal serosanguineous collection. Results & Data Results & Data Vital Signs (Past 12 Hours) Vital Signs Temp Pulse Resp BP Pulse Ox O2 Del Method 09/19/22 15:48 36.6 C 74 17 113/71 95 Room Air 09/19/22 11:10 36.7 C 71 17 109/69 94 Room Air 09/19/22 07:22 37.1 C 81 16 114/72 96 Room Air
[2022-09-19] MEDS: PRAVASTATIN SOD 40 MG TAB PO SCH (20:24)
[2022-09-19] MEDS: DOCUSATE SODIUM/SENNA 50/8.6MG TAB PO SCH (20:24)
[2022-09-19] MEDS: GABAPENTIN 300 MG CAP PO SCH (20:24)
[2022-09-20] MEDS: POLYETHYLENE (MIRALAX) 17 GM PACK PO SCH ×2 (05:53→12:01)
[2022-09-20] MEDS: traMADol HCL 50 MG TABLET PO PRN ×2 (05:54→10:43)
[2022-09-20 06:09] LABS: Hematocrit (blood only) 39.7 % (42.0-52.0); Hemoglobin 13.7 g/dl (14.0-18.0); Mean Corpuscular Hemoglobin 32.5 pg (25.0-34.0); Mean Corpuscular Hgb Conc 34.5 g/dL (32.0-36.0); Mean Corpuscular Volume 94.3 fL (80.0-100.0); Mean Platelet Volume 10.3 fL (9.4-12.4); Platelet Count 246 K/uL (130-400); RDW Coefficient of Variation 12.5 % (11.5-14.5); RDW Standard Deviation 42.9 fL (36.4-46.3); Red Blood Count 4.21 M/uL (4.70-6.10); White Blood Count 18.56 K/ul (4.8-10.8)
[2022-09-20] MEDS: EZETIMIBE 10 MG TAB PO SCH (08:32)
[2022-09-20] MEDS: dexAMETHasone 6 MG in SYRINGE 0 ML IV SCH (08:32)
[2022-09-20] MEDS: busPIRone 5 MG TAB PO SCH (08:32)
--- NOTE | 2022-09-20 09:29 | Discharge Summary ---
Date of Service September 20, 2022 Admission HPI Per Admitting Provider This is a 62-year-old male who presents with chronic persistent back and leg pain and failing since course of nonoperative care is here for surgical invention. Principal Diagnosis Lumbar spinal stenosis with neurogenic claudication Discharge Data Allergies Allergy/AdvReac Type Severity Reaction Status Date / Time atorvastatin AdvReac Unknown joint pains Uncoded 09/18/22 12:02 prednisone AdvReac Unknown Uncoded 09/18/22 12:02 Consultations 09/18/22 11:33 Consult Hospitalist Routine Procedures Performed Operation Date: 09/18/22 07:45 Actual Procedures p L4-L5 Decompression and Fusion, Spinal Cord Monitoring(Bilateral) - Yonny Montiel DO Ordered Studies 09/18/22 07:45 [place] lumbar spine 2-3V Routine Hospital Course (1) Neurogenic claudication due to lumbar spinal stenosis: Patient with lumbar decompression fusion tolerated as well as taken to orthopedic for postop labor postop day 1 is up and ambulating. Postop day #2. Pain was well-controlled. Excellent strength testing. NAKUL drain decreasing appropriately. Subsidy discharged home. Discharge orders instructions found in chart for further review. Total Time Total Time Spent Total Time Spent (In Minutes): 20 minutes Discharge Plan Discharge Items Patient Disposition: Home - Self-Care Reason For Visit: Lumbar Region Spinal Stenosis Without Neurogenic Discharge Diagnosis: Lumbar spinal stenosis with neurogenic claudication Activity: As commented below Non-emergency contact: Primary Care Provider Call non-emergency contact if: you have any medication questions Follow-up/Referrals: Ashley Salcido CRNP [Primary Care Provider] - Diet: Regular Addtl Attending Provider Instructions: ACTIVITY RECOMMENDATIONS: SELF CARE INSTRUCTIONS AFTER THORACIC/LUMBAR FUSIONS 1. You may walk to your tolerance. It is good exercise for your legs and back. Expect some back and intermittent leg aches and pains. 2. You may perform "counter-top" level activities (make a sandwich, marychuy with a project, etc.). 3. No bending or lifting of more than 10 pounds or back twisting of any nature (roll like a log when turning in bed). 4. You may ride in a car for 20-30 minutes at a time. No driving until after your first visit with your doctor. 5. Frequent changes of position and restricting sitting to 30 minutes at a time will help limit the amount of back spasms and stiffness you may experience. 6. You may discontinue the use of ambulatory aids (cane, crutches, etc.) once your strength and confidence allow. 7. You may commercial field inspector the shower and let water strike your incision when you arrive home at least once daily. Do not take a tub bath, sit in a hot tub or go into a swimming pool until after your first recheck in the office. SPECIAL CARE INSTRUCTIONS: VERY IMPORTANT TO READ AND REVIEW A. Your surgical incision has been closed with a cosmetic suture under the skin that will dissolve in about 6 weeks. In 14 days, you can use a pair of clean scissors and cut the suture that is left outside of the skin at the ends of your incision. 1. The small skin tapes can be removed 7 days after surgery if they have not fallen off by that point. 2. You may keep the wound open to air as much as possible to promote healing after post-op day number 5 unless told otherwise by your doctor. 3. If you think the wound looks like it is becoming infected (redness or worsening drainage) and/or you are experiencing fever, chill or worsening back pain and muscle spasms, contact the office so that we may evaluate you as soon as possible. B. Complications are uncommon, but please contact us if you have any signs or symptoms of: 1. wound infection (fever higher than 102.5 degrees F, redness, separation of wound, drainage, or increasing pain from the incision) 2. blood clots in legs (pain, swelling, redness and warmth in legs) 3. urinary tract infection (fever higher than 102.5 degrees F, burning upon urination or increased frequency of urination) 4. nerve problems (inability to walk on your toes or heels, numbness, loss of bowel or bladder control) 5. any other symptoms that concern you C. Please call the office at if you have any concerns or questions about your operation or recovery. D. No smoking! Smoking drastically decreases the chance of a solid fusion. E. Do not take any anti-inflammatory medications (Indocin, Advil, Motrin, Aspirin, Naprosyn, etc.) as these may inhibit the chance of a solid fusion. Tylenol is okay to take for pain. MANAGING PAIN AFTER SPINAL SURGERY 1. Narcotic medication is intended for short-term use and will be provided for surgical pain. Surgical pain usually lasts for a period of 4-6 weeks. Narcotic medication includes Percocet, Vicodin, Darvocet, Tylenol #3 or Lortab. 2. Longer-term pain is more appropriately treated with non-narcotic medication such as Tylenol ES. 3. Muscle spasm is not appropriately treated with narcotics. Muscle relaxers such as Soma, Flexeril or Skelaxin can be used along with Tylenol ES. 4. Remember that we all live with some "aches and pains". This is not unusual or uncommon after an injury or as we get older. a. Back pain is expected and may include muscle spasms for 4 to 6 weeks after surgery. The pain should gradually improve. If the pain worsens for no apparent reason, please contact the office. b. Intermittent leg pain may also be experienced and should not be concerned about unless it worsens for no apparent reason. If so, please contact the office. 5. We will provide appropriate medication within the normal guidelines of their prescribed use. We will also be very cautious and aware of potential abuse and extended duration of patients' medication needs. a. Pain medications are for your comfort and to assist with sleep and rest so that the tissue can heal. They are not provided in order to return to normal activity and should not be used through the day. To do so or worsening pain at night can result from ongoing tissue damage and development of tolerance to the prescribed medicine. 6. Please allow 2-3 days to process refills. Prescriptions will not be mailed but must be picked up at the office. FOLLOW UP VISIT: Keep your scheduled follow-up appointment. Any questions, please call the office at . Pending Studies at Discharge: No Stand-Alone Forms: [facility], Smoking Cessation Medications and DC Order Prescriptions: New tramadol 50 mg tablet 50 mg PO Q6H PRN (Reason: pain, moderate) Qty: 30 0RF oxycodone 5 mg tablet 5 mg PO Q6H PRN (Reason: pain) Qty: 30 0RF Continued celecoxib 200 mg Capsule 200 mg PO QAM pravastatin 40 mg Tablet 40 mg PO HS buspirone 10 mg Tablet 10 mg PO BID ezetimibe [Zetia] 10 mg Tablet 10 mg PO QAM cyclobenzaprine 5 mg Tablet 5 mg PO TID gabapentin 100 mg capsule 100 mg PO BID@1300 gabapentin 300 mg Capsule 300 mg PO HS Discharge Orders: Discharge Order (Routine); Ordered 09/20/22 Ordered By: Yonny Montiel Admission Data Admit Date/Time: 09/18/22 09:36 Attending Provider: Yonny Montiel Admit Provider: Yonny Montiel Primary Care Provider: Ashley Salcido Other Providers: Calista Wheeler ; Delfina Mccracken
--- NOTE | 2022-09-20 12:09 | Hospitalist Progress Note ---
Date of Service September 20, 2022 Assessment & Plan (1) Neurogenic claudication due to lumbar spinal stenosis: Plan: s/p 1. Lumbar decompression bilaterally facetectomies and foraminotomies L3-L4 and L4-5. #2 posterior spinal fusion L4-L5 #3 placed posterior instrumentation L4-5 per #4 interbody fusion L4-5 and L5 placement Spira 15 x 26 mm x 2 at L4- 5. #6 placement locally harvested morselized autograft in the posterior gutters. #7 placement of I factor amount of the test interbody space and posterior gutters by EBShin 50cc POD #2 -pain/wound management per Ortho -VTE prophylaxis per Ortho, encourage early ambulation -incentive spirometry encouraged -CBC, BMP in am -PT/OT and activity restrictions per Ortho (2) Hyperlipidemia: Plan: chronic, stable. cont Pravastatin and ezetimibe per home regimen. (3) Osteoarthritis: Plan: chronic, stable. No active pain at this time. Celebrex has been held for the past week. Defer to ortho spine to restart once bleeding risk is minimal. (4) Depression: Plan: chronic, stable. Cont Buspar per home regimen. DVT prophylaxis-SCDs or ambulation. Full Code Dispo-med/surg, DC today. Admission and Anticipated Discharge Date Admission Date: September 18, 2022 Subjective Back pain controlled BLE radicular pain markedly improved. Reports feeling better. Offers no new complaints. is discharge today. Physical Exam Physical Exam: GENERAL: Alert and oriented x3. NAD, on RA. HEENT: No pallor, no icterus. Pupils equal, round and reactive to light. Oral mucosa moist. NECK: No JVD, no neck masses. HEART: S1 and S2 heard. Regular rate and rhythm. No murmur, no gallop. RESPIRATORY SYSTEM: Normal AP diameter. No accessory muscle use. No wheezing, no crackles. ABDOMEN: Soft, bowel sounds present, nontender, no distention. CENTRAL NERVOUS SYSTEM: No facial droop. Speech is clear. Obeys simple commands. Moves extremities. EXTREMITIES: No edema, no erythema seen. Lower back with clean dressing without soakage. NAKUL drain noted with minimal serosanguineous collection. Results & Data Results & Data Vital Signs (Past 12 Hours) Vital Signs Temp Pulse Resp BP Pulse Ox O2 Del Method 09/20/22 07:00 36.5 C 70 16 136/84 94 Room Air
== END 2022-09-20 12:26 | disposition home or self-care (01) | DRG 455 ==
LOC: ASU 06:15 → 3W 09:36